=== PATIENT | female | born 1985 | race Caucasian/White ===

== ENCOUNTER 2017-07-25 10:35 | Outpatient (CLI) | payer MEDICAID ==
--- NOTE | 2017-07-25 11:16 | Non Stress Test Report ---
Non Stress Test Datetime Report Generated by CPN: 07/25/2017 11:16 DEMOGRAPHIC EGA NST: 32.6 INDICATION Indication for Study: Diabetes Mellitus; Ordered by Provider MONITORING Monitor Explained: Monitor Explained; Test Explained; Patient Verbalized Understanding Time on Monitor: 07/25/2017 10:47 Time off Monitor: 07/25/2017 11:10 NST Duration: 23 NST INTERVENTIONS NST Interventions: PO Hydration; Reposition Patient Physician Notified NST: C Valenica CNM BABY A: [id number] BABY A Movement : Present Contraction Frequency : 0 FHR Baseline : 150 Accelerations : 15X15 Decelerations : None Variability : Moderate 6-25bpm NST Review: Meets Criteria for Reactive NST NST Review and Verified By : MANSI Burton Results: Reactive NST REPORT Report Trigger: Send Report
== END 2017-07-25 11:20 | disposition home or self-care (01) ==
LOC: LC 10:35
PROVIDERS: ATTEND Obstetrics & Gynecology
PROC: 4A1HXCZ Monitoring of Products of Conception, Cardiac Rate, External Approach (ICD-10-PCS; principal; 2017-07-25)
DX: O24.419 Gestational diabetes mellitus in pregnancy, unspecified control (principal); Z3A.32 32 weeks gestation of pregnancy
CPT/HCPCS: 59025

== ENCOUNTER 2017-07-28 10:51 | Outpatient (CLI) | payer MEDICAID ==
--- NOTE | 2017-07-28 12:29 | RADIOLOGY REPORT (SQ) ---
EXAM DESCRIPTION: U/S PROFILE W/O STRESS COMPLETED DATE/TIME: 07/28/2017 12:13 pm REASON FOR STUDY: non reactive nst for GDM COMPARISON: None. TECHNIQUE: Limited canseco-scale realtime and static images of the fetus to measure specified parameter s. LIMITATIONS: None. FINDINGS: HEART RATE: 126 beats per minute. BREATHING MOVEMENT: 2 points. MOVEMENT: 2 points. POSTURE AND TONE: 2 points. QUALITATIVE RED: 2 points. OTHER: No other significant finding. IMPRESSION: BIOPHYSICAL PROFILE: 10/18. Trimester of : Third - 28 weeks to delivery COMMENT: BREATHING MOVEMENTS: 2 POINTS: PRESENT 0 POINTS: ABSENT MOTION: 2 POINTS: PRESENT 0 POINTS: ABSENT TONE: 2 POINTS: PRESENT 0 POINTS: ABSENT AMNIOTIC FLUID VOLUME: 2 POINTS: LARGEST POCKET GREATER THAN 2 CM DEPTH. 0 POINTS: NO POCKET OF 2 CM. TECHNICAL DOCUMENTATION: JOB ID: [id number] [employer]- All Rights Reserved Reading location - IP/workstation name: [email or web address]
== END 2017-07-28 13:14 | disposition home or self-care (01) ==
LOC: LC 10:51
PROVIDERS: ATTEND Obstetrics & Gynecology Gynecology
PROC: 4A1HXCZ Monitoring of Products of Conception, Cardiac Rate, External Approach (ICD-10-PCS; principal; 2017-07-28)
DX: O24.415 Gestational diabetes mellitus in pregnancy, controlled by oral hypoglycemic drugs (principal); Z3A.35 35 weeks gestation of pregnancy
CPT/HCPCS: 76819

== ENCOUNTER 2017-08-18 10:31 | Outpatient (CLI) | payer MEDICAID ==
--- NOTE | 2017-08-18 10:37 | Non Stress Test Report ---
Non Stress Test Datetime Report Generated by CPN: 08/18/2017 10:37 DEMOGRAPHIC EGA NST: 33.2 INDICATION Indication for Study: Diabetes Mellitus; Ordered by Provider VITAL SIGNS Temperature - NST: 98.1 Pulse - NST: 89 NBPSYS NST: 118 NBPDIA NST: 72 MONITORING Monitor Explained: Monitor Explained; Test Explained; Patient Verbalized Understanding Time on Monitor: 07/28/2017 12:45 Time off Monitor: 07/28/2017 13:05 NST Duration: 20 NST INTERVENTIONS NST Interventions: PO Hydration; For Biophysical Profile NST Interventions Other: BPP WNL Physician Notified NST: A. Rosen, CNM BABY A: [id number] BABY A Movement : Present Contraction Frequency : 0 FHR Baseline : 135 Accelerations : 10X10 Decelerations : None Variability : Moderate 6-25bpm NST Review: Questionable if Meets Criteria for Reactive NST NST Review and Verified By : Ranjith Baker RN NST Results: Questionable NST REPORT Report Trigger: Send Report
--- NOTE | 2017-08-23 07:24 | Non Stress Test Report ---
Non Stress Test Datetime Report Generated by CPN: 08/23/2017 07:23 DEMOGRAPHIC EGA NST: 36.2 INDICATION Indication for Study: Ordered by Provider Indication for Study (NST) Other: repeat from office for choley MONITORING Monitor Explained: Monitor Explained; Test Explained; Patient Verbalized Understanding Time on Monitor: 08/18/2017 10:40 Time off Monitor: 08/18/2017 11:50 NST Duration: 70 NST INTERVENTIONS NST Interventions: PO Hydration; Reposition Patient Physician Notified NST: Dr Paris BABY A: [id number] BABY A Movement : Present Contraction Frequency : 0 FHR Baseline : 130 Accelerations : 15X15 Decelerations : None Variability : Moderate 6-25bpm NST Review: Meets Criteria for Reactive NST NST Review and Verified By : Antony Handy RNC NST Results: Reactive NST REPORT Report Trigger: Send Report
== END 2017-08-18 11:50 | disposition home or self-care (01) ==
LOC: LC 10:31
PROVIDERS: ATTEND Student in an Organized Health Care Education/Training Program
PROC: 4A1HXCZ Monitoring of Products of Conception, Cardiac Rate, External Approach (ICD-10-PCS; principal; 2017-08-18)
DX: O24.419 Gestational diabetes mellitus in pregnancy, unspecified control (principal); Z3A.36 36 weeks gestation of pregnancy
CPT/HCPCS: 59025

== ENCOUNTER 2017-08-23 09:22 | Inpatient (IN) | payer MEDICAID ==
[2017-08-23] MEDS ORDERED: OXYTOCIN/NORMAL SALINE 20 UNIT/1,000 ML RTUINJ IV PRN ×3 (09:34→21:23)
[2017-08-23] MEDS ORDERED: RINGERS SOLUTION,LACTATED 300 ML IV ONE (09:34)
[2017-08-23] MEDS ORDERED: RINGERS SOLUTION,LACTATED 1,000 ML IV PRN (09:34)
[2017-08-23] MEDS ORDERED: PENICILLIN G POTASSIUM 5,000,000 UNIT in DEXTROSE 5%-WATER 100 ML IV ONE (09:36)
[2017-08-23] MEDS ORDERED: LIDOCAINE 1% INJ-PF (10 MG/ML) 30 ML SDV ONE (09:37)
[2017-08-23] MEDS ORDERED: MISOPROSTOL 0.2 MG TABLET ONE (09:37)
[2017-08-23] MEDS ORDERED: PENICILLIN G-K 5 MILLION UNIT VIAL ONE ×3 (09:37→18:46)
[2017-08-23] MEDS ORDERED: OXYTOCIN/NORMAL SALINE 20 UNIT/1,000 ML RTUINJ ONE (09:37)
[2017-08-23 10:42] LABS: ABSOLUTE EOSINOPHILS # (AUTO) 0.3 10^3/uL (0.0-0.6); ABSOLUTE LYMPHOCYTES (AUTO) 2.2 10^3/uL (0.5-4.7); ABSOLUTE MONOCYTES (AUTO) 0.6 10^3/uL (0.1-1.4); ABSOLUTE NEUT (AUTO) 6.3 10^3/uL (1.7-8.2); BASOPHILS % (AUTO) 0.4 % (0-2); HEMATOCRIT 33.7 % (36.0-47.0); HEMOGLOBIN 11.3 g/dL (12.0-15.5); LYMPHOCYTES % (AUTO) 23.3 % (13-45); MEAN CORPUSCULAR HEMOGLOBIN 30.5 pg (27.0-33.4); MEAN CORPUSCULAR HGB CONC 33.6 g/dL (32.0-36.0); MEAN CORPUSCULAR VOLUME 91 fl (80-97); MONOCYTES % (AUTO) 6.5 % (3-13); PLATELET COUNT 223 10^3/uL (150-450); RED BLOOD COUNT 3.71 10^6/uL (3.72-5.28); SEGMENTED NEUTROPHILS % (AUTO) 66.8 % (42-78); TOTAL CELLS COUNTED % (AUTO) 100 %; WHITE BLOOD COUNT 9.4 10^3/uL (4.0-10.5)
[2017-08-23 10:44] LABS: INTERNATIONAL RATION (INR) 0.85
[2017-08-23 10:45] LABS: PARTIAL THROMBOPLASTIN TIME 27.4 SEC (23.5-35.8)
[2017-08-23 10:45] LABS: URINE AMPHETAMINES SCREEN NEGATIVE; URINE BARBITURATES SCREEN NEGATIVE; URINE BENZODIAZEPINES SCREEN NEGATIVE; URINE COCAINE SCREEN NEGATIVE; URINE MARIJUANA (THC) SCREEN NEGATIVE; URINE METHADONE SCREEN NEGATIVE; URINE PHENCYCLIDINE SCREEN NEGATIVE
[2017-08-23 10:51] LABS: ALANINE AMINOTRANSFERASE 66 U/L (9-52); ALBUMIN 3.5 g/dL (3.5-5.0); ALKALINE PHOSPHATASE 135 U/L (38-126); ANION GAP 11 (5-19); ASPARTATE AMINO TRANSFERASE 45 U/L (14-36); BILIRUBIN,DIRECT 0.2 mg/dL (0.0-0.4); BILIRUBIN,TOTAL 0.3 mg/dL (0.2-1.3); BLOOD UREA NITROGEN 11 mg/dL (7-20); CALCIUM 9.9 mg/dL (8.4-10.2); CARBON DIOXIDE 21 mmol/L (22-30); CHLORIDE 108 mmol/L (98-107); GLUCOSE 80 mg/dL (75-110); LDH 499 U/L (313-618); POTASSIUM 4.6 mmol/L (3.6-5.0); SODIUM 139.5 mmol/L (137-145); TOTAL PROTEIN 6.6 g/dL (6.3-8.2)
--- NOTE | 2017-08-23 11:21 | Admission Physical ---
Datetime Report Generated by CPN: 08/23/2017 11:21 CURRENT ADMISSION Chief Complaint: Scheduled Induction of Labor Indication for Induction: Eclampsia-Mild; Maternal Diabetes Indication for Induction- Other: Cholestasis of Admit Impression : Term, Intrauterine ; No Active Labor; Intact Membranes; Induction of Labor Admit Plan: Admit to Unit; Initiate Labor Induction Protocol ALLERGIES Medication Allergies: No Medication Allergies: No Known Allergies (08/23/2017) Latex: Latex Allergies Food Allergies: none Environmental Allergies: none OBSTETRICAL HISTORY EDC: 09/13/2017 00:00 : 4 Para: 3 Term: 3 : 0 SAB: 0 IAB: 0 Ectopic: 0 Livin Cesareans: 0 VBACs: 0 Multiple Births: 0 Gestational Diabetes: Yes Rh Sensitization: No Incompetent Cervix: No DANIEL: No Infertility: No ART Treatment: No Uterine Anomaly: No IUGR: No Hx Previous C/S: No Macrosomia: Yes Hx Loss/Stillborn: No PIH: Unknown Hx : No Placenta Previa/Abruption: No Depression/PP Depression: No PTL/PROM: No Post Hemorrhage: No Current Procedures: Ultrasound; NST Obstetrical History Comments: G1-GIRL, 7#2 G2-BOY, 8#6 G3-BOY, 9#1- MACROSOMIA, GDM G4- CURRENT- A2DM, CHOLESTASIS, GBS +, PRE-E SEE RECORDS Alcohol: No Marijuana : No Cocaine: No Other Illicit Drugs: No Cigarettes: Former Smoker. 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 Surgery: No Heart Disease: No Hosp/Surgery: Yes Autoimmune Disorder: No Anesthetic Complications: No Kidney Disease: No Abnormal Pap Smear: Yes Neuro/Epilepsy: No Psychiatric Disorders: No Other Medical Diseases: No Hepatitis/Liver Disease: No Significant Family History: No Varicosities/Phlebitis: No Trauma/Violence : No Thyroid Dysfunction: No Medical History Comments: Pre-E, childbirth, abnormal pap in INFECTIOUS HISTORY Gonorrhea: No Genital Herpes: No Chlamydia: Yes Tuberculosis: No Syphilis: No Hepatitis: No HIV/AIDS Exposure: No Rash or Viral Illness: No HPV: No Infectious History Comments: chlamydia PHYSICAL EXAM General: Normal HEENT: Normal Neurologic: Normal Thyroid: Deferred Heart: Normal Lungs: Normal Breast: Deferred Back: Normal Abdomen: Normal Genitourinary Exam: Normal Extremities: Normal DTRs: Normal Pelvic Type: Adequate Vital Signs: Reviewed VAGINAL EXAM Dilatation: 3 Effacement: 50 Station: -3 Contraction Comments: rare MEMBRANES Membranes: Intact FETUS A EGA: 37.0 Monitoring: External US FHR- Baseline: 145 Variability: Moderate 6-25bpm Accelerations: 15X15 Decelerations: None Estimated Weight (gm): 3197 Presentation: Vertex Admit Comment: 31yo at 37+0ega presents for IOL due to Mild PreE, Cholestasis of , A2GDM. She has only custody on one prior child. also c/b pruritis folliculitis of . Currently on Metformin QHS. EFW 7#1oz on 08/15. history of anxiety and depression - no meds - needs nurse discharge planner. GBS positive - PCN for GBS prophy. Admit to L_D for IOL with pitocin. Anticipate . PLANS FOR LABOR AND DELIVERY Labor and Delivery: None Pain Management: Epidural Feeding Preference: Formula Benefit of Breast Feed Discussed: Yes Circumcision: Yes INFORMED CONSENT Informed Consent Obtained: Vaginal Delivery; Induction of Labor; Risks, Benefits and Alternatives Discussed Signature: with User ID: [email or web address]
[2017-08-23] MEDS ORDERED: MAG HYDROX/AL HYDROX/SIMETH SUSP 30 ML UDCUP ONE (11:57)
[2017-08-23] MEDS ORDERED: HYDROXYZINE PAMOATE 50 MG CAPSULE ONE ×2 (11:57→19:45)
[2017-08-23] MEDS ORDERED: PENICILLIN G POTASSIUM 2,500,000 UNIT in DEXTROSE 5%-WATER 50 ML IV SCH (13:36)
[2017-08-23] MEDS ORDERED: EPHEDRINE SULFATE INJ 50 MG/1 ML AMPULE ONE (16:03)
[2017-08-23] MEDS ORDERED: BUPIVACAINE HCL 0.25 % INJ/PF (2.5 MG/1 ML) 30 ML VIAL ONE (16:03)
[2017-08-23] MEDS ORDERED: FENTANYL/BUPIVACAINE/NS/PF 300 MCG/150 ML RTUINJ EPI ONE (16:03)
[2017-08-23] MEDS ORDERED: LIDOCAINE 1.5%/EPINEPHRINE INJ-PF 30 ML SDV ONE (16:09)
--- NOTE | 2017-08-23 17:02 | L&D Progress Notes ---
PROGRESS NOTES Datetime Report Generated by CPN: 08/23/2017 17:02 PROGRESS NOTE Informed Consent Obtained: Vaginal Delivery; Induction of Labor; Risks, Benefits and Alternatives Discussed Comment: epidural completed, feeling better, VE= 5-6/80/vtx/-2, ballotible, wait to ROM, will recheck later and ROM, Cat 1 strip VAGINAL EXAM Dilatation: 3 Effacement: 50 Station: -3 Contractions: rare MEMBRANES Membranes: Intact FETUS A Estimated Weight (gm): 3197 Presentation: Vertex SIGNATURE SIGNATURE: [id number] SIGNATURE: [id number] SIGNATURE: [id number] SIGNATURE: [id number] SIGNATURE: [id number] Assignment: Keren Paris MD Signature: with User ID: [email or web address] : with User ID: [email or web address]
--- NOTE | 2017-08-23 18:47 | L&D Progress Notes ---
PROGRESS NOTES Datetime Report Generated by CPN: 08/23/2017 18:46 PROGRESS NOTE Comment: comfortable, VE 6-7/100/vtx/0, AROM by FSE, clear fluid, UC's q 2-4, mod palpation, anticipate FETUS C SIGNATURE: [id number];14,[id number];10,[id number] Assignment: Keren Paris MD Signature: with User ID: [email or web address] : with User ID: [email or web address]
[2017-08-23] MEDS ORDERED: HYDROXYZINE PAMOATE 50 MG CAPSULE PO ONE (20:30)
--- NOTE | 2017-08-23 21:15 | Warning Signs in Babies ---
VOD Warning Signs Datetime Report Generated by [facility]: 08/23/2017 21:14 VOD#608 -Warning Signs in Babies: Viewed with Parent(s)/Family (08/23/2017 21:14:Khushboo Laughlin RN)
[2017-08-23] MEDS ORDERED: MEASLES,MUMPS&RUBELLA VACC/PF 0.5 ML VIAL SUBCUT PRN (21:23)
[2017-08-23] MEDS ORDERED: PSEUDOEPHEDRINE HCL 30 MG TABLET PO PRN (21:23)
[2017-08-23] MEDS ORDERED: MAGNESIUM HYDROXIDE SUSP 30 ML UDCUP PO PRN (21:23)
[2017-08-23] MEDS ORDERED: NA PHOS,M-B/NA PHOS,DI-BA (ADULT) 133 ML ENEMA PR PRN (21:23)
[2017-08-23] MEDS ORDERED: PROMETHAZINE HCL 25 MG TABLET PO PRN (21:23)
[2017-08-23] MEDS ORDERED: ZOLPIDEM TARTRATE 5 MG TABLET PO PRN (21:23)
[2017-08-23] MEDS ORDERED: ACETAMINOPHEN 325 MG TABLET PO PRN (21:23)
[2017-08-23] MEDS ORDERED: DIBUCAINE 1% OINTMENT 28 GM TP PRN (21:23)
[2017-08-23] MEDS ORDERED: BENZOCAINE/MENTHOL AEROSOL SPRAY 56 ML TOP PRN (21:23)
[2017-08-23] MEDS ORDERED: PROMETHAZINE HCL 25 MG SUPP.RECT PR PRN (21:23)
[2017-08-23] MEDS ORDERED: PROMETHAZINE HCL INJ 25 MG/1 ML VIAL IV PRN (21:23)
[2017-08-23] MEDS ORDERED: GLYCERIN/WITCH HAZEL LEAF 1 EACH MED..PAD TP PRN (21:23)
[2017-08-23] MEDS ORDERED: DIPH/PERTUSS(ACELL)/TETANUS VAC/PF 0.5 ML SYR (>=10YO) IM PRN (21:23)
--- NOTE | 2017-08-23 21:46 | Delivery Summary ---
Del Sum A-C Datetime Report Generated by CPN: 08/23/2017 21:46 DELIVERY PERSONNEL DELIVERY PERSONNEL: [id number] Delivery Doctor:: Keren Paris MD Anesthesiologist:: Junior Chowdhury MD Labor and Delivery Nurse:: Khushboo Laughlin RN Nursery Nurse:: Claudette Fierro RN Control Clerk Auditing/CERTIFIED OPTICIAN: Sarahi Reddy CNA Additional Personnel: : Margaret Moreno RN MATERNAL INFORMATION Delivery Anesthesia: Epidural Medications After Delivery: Pitocin Bolus-Please Comment Meds After Delivery Comment: pitocin bolusing per order Maternal Complications: None Provider Comments: VMI delivered in ANDREW presentation. No nuchal cord. Shoulders and body delivered without difficulty. Cord doubly clamped and cut and infant to maternal abdomen for NRP. Placenta delivered intact spontaneously. No perineal lacerations. Mother and baby stable upon provider leaving the room. LABOR SUMMARY EDC: 09/13/2017 00:00 No. Babies in Womb: 1 Attempted: No Labor Anesthesia: Epidural LABOR INFORMATION Reason for Induction: Pre-Eclampsia; Maternal Diabetes; Other Reason for Induction- Other: cholestasis Onset of Labor: 08/23/2017 11:05 Complete Dilatation: 08/23/2017 20:29 Oxytocin: Induction Group B Beta Strep: POSITIVE Antibiotics # of Doses: 2 Antibiotics Time of Last Dose: 1422 Name of Antibiotic Given: PCN Steroids Given: None Reason Steroids Not Administered: Not Applicable MEMBRANES Membranes Rupture Method: Artificial Rupture of Membranes: 08/23/2017 18:41 Length of Rupture (hr): 2.20 Amniotic Fluid Color: Clear Amniotic Fluid Amount: Large Amniotic Fluid Odor: Normal STAGES OF LABOR Stage 1 hr: 9 Stage 1 min: 24 Stage 2 hr: 0 Stage 2 min: 24 Stage 3 hr: 0 Stage 3 min: 2 Total Time in Labor hr: 9 Total Time in Labor min: 50 VAGINAL DELIVERY Episiotomy: None Laceration #1: None Laceration Extension #1: N/A Laceration Repair: Not Applicable Sponge Count Correct: Yes Sharps Count Correct: Yes BABY A INFORMATION Delivery Date/Time: 08/23/2017 20:53 Method of Delivery: Vaginal Born in Route : No : N/A Forceps: N/A Vacuum Extraction: N/A Shoulder Dystocia : No PRESENTATION/POSITION BABY A Presentation: Cephalic Cephalic Presentation: Vertex Vertex Position: Left Occipital Anterior PLACENTA INFORMATION BABY A Placenta Delivery Time : 08/23/2017 20:55 Placenta Method of Delivery: Spontaneous Placenta Status: Delivered SCORES BABY A Heart Rate 1 min: >100 bpm Resp Effort 1 min: Good Cry Reflex Irritability 1 min: Cough or Sneeze or Pulls Away Muscle Tone 1 min: Active Motion Color 1 min: Body [place], Extremities Blue SCORE 1 MIN: 9 Heart Rate 5 min: >100 bpm Resp Effort 5 min: Good Cry Reflex Irritability 5 min: Cough or Sneeze or Pulls Away Muscle Tone 5 min: Active Motion Color 5 min: Body [place], Extremities Blue SCORE 5 MIN: 9 INFANT INFORMATION BABY A Gestational Age at Delivery: 37.0 Gestational Status: Early Term- 37- 38.6 Weeks Infant Outcome : Liveborn Condition : Stable Sex: Male IDENTIFICATION BABY A Infant Verification Date/Time: 08/23/2017 21:00 ID Band Number: [id number] Mother's Name Verified: Yes RN Verifying : , RN Additional Verifying Personnel: CUONG Santoyo/US WEIGHT/LENGTH BABY A Infant Birthweight (gm): 3360 Weight (lb): 7 Infant Weight (oz): 7 Infant Length (in): 19.00 Length (cm): 48.26 CORD INFORMATION BABY A No. Cord Vessels: 3 Nuchal Cord : N/A Cord Blood Taken: Yes-For Storage (Mom's Blood type +) ASSESSMENT BABY A Complications: None Physical Findings at Delivery: Within Normal Limits Infant Respirations: Appears Normal BABY B INFORMATION : N/A SIGNATURES Signature: with User ID: [email or web address]
[2017-08-24] MEDS ORDERED: IBUPROFEN 800 MG TABLET ONE (03:51)
[2017-08-24] MEDS ORDERED: PROMETHAZINE HCL INJ 25 MG/1 ML VIAL ONE (05:25)
[2017-08-24] MEDS ORDERED: ACETAMINOPHEN WITH CODEINE #3 TABLET ONE (05:28)
[2017-08-24] MEDS: ACETAMINOPHEN WITH CODEINE #3 TABLET PO PRN ×3 (05:31→21:11)
[2017-08-24 07:38] LABS: HEMATOCRIT 30.2 % (36.0-47.0); HEMOGLOBIN 10.2 g/dL (12.0-15.5); MEAN CORPUSCULAR HEMOGLOBIN 30.8 pg (27.0-33.4); MEAN CORPUSCULAR HGB CONC 33.8 g/dL (32.0-36.0); MEAN CORPUSCULAR VOLUME 91 fl (80-97); PLATELET COUNT 187 10^3/uL (150-450); RED BLOOD COUNT 3.31 10^6/uL (3.72-5.28); RED CELL DISTRIBUTION WIDTH 14.3 % (11.5-14.0); WHITE BLOOD COUNT 11.2 10^3/uL (4.0-10.5)
[2017-08-24] MEDS: SENNOSIDES/DOCUSATE 8.6-50 MG 1 EACH TABLET PO SCH (09:19)
[2017-08-24] MEDS: PRENATAL VITAMIN W DHA CAPSULE PO SCH (09:20)
[2017-08-24] MEDS: FERROUS SULFATE 325 MG TABLET PO SCH ×2 (09:20→17:34)
[2017-08-24] MEDS: DOCUSATE SODIUM 100 MG CAPSULE PO SCH ×2 (09:20→17:35)
[2017-08-24] MEDS: FAMOTIDINE 20 MG TABLET PO SCH ×2 (09:20→21:10)
[2017-08-24] MEDS: IBUPROFEN 800 MG TABLET PO SCH ×3 (09:47→21:09)
--- NOTE | 2017-08-24 10:52 | PDOC PROGRESS REPORT ---
Subjective-OB Progress Note for:: 08/24/17 Subjective: s/p day #1 denies concerns, lochia is stable, pain well controlled, voiding without difficulty. Physical Exam (OB) Vital Signs: Intake & Output 08/23/17 08/24/17 08/25/17 06:59 06:59 06:59 Weight 80.3 kg - Lochia Lochia Amount: Scant < 10 ml Lochia Color: Rubra/Red - Abdomen Description: Tender, Soft Hernia Present: No Fundal Description: Firm, Midline Fundal Height: u/u - u/2 Objective-Diagnostic Laboratory: 08/24/17 07:06 08/23/17 09:59 08/23/17 08/23/17 08/24/17 09:59 09:59 07:06 WBC 11.2 H RBC 3.31 L Hgb 10.2 L Hct 30.2 L MCV 91 MCH 30.8 MCHC 33.8 RDW 14.3 H Plt Count 187 Sodium 139.5 Potassium 4.6 Chloride 108 H Carbon Dioxide 21 L Anion Gap 11 BUN 11 Creatinine 0.46 L Est GFR ( Amer) > 60 Est GFR (Non-Af Amer) > 60 Glucose 80 Uric Acid 4.0 Calcium 9.9 Total Bilirubin 0.3 AST 45 H ALT 66 H Alkaline Phosphatase 135 H Total Protein 6.6 Albumin 3.5 Blood Type A POSITIVE Antibody Screen NEGATIVE Assessment and Plan(PN) - Assessment and Plan (1) Carrier of group B Streptococcus Is this a current diagnosis for this admission?: Yes Plan: monitor (2) Cholestasis during Qualifiers: Trimester: third trimester Qualified Code(s): O26.613 - Liver and biliary tract disorders in , third trimester; K83.1 - Obstruction of bile duct ; K83.1 - Obstruction of bile duct Is this a current diagnosis for this admission?: Yes Plan: monitor (3) Gestational diabetes mellitus (GDM) controlled on oral hypoglycemic drug Qualifiers: Trimester: third trimester Qualified Code(s): O24.415 - Gestational diabetes mellitus in , controlled by oral hypoglycemic drugs Is this a current diagnosis for this admission?: Yes Plan: yearly monitor (4) Pre-eclampsia Qualifiers: Trimester: third trimester Qualified Code(s): O14.93 - Unspecified pre- eclampsia, third trimester Is this a current diagnosis for this admission?: Yes Plan: monitor - Time Spent with Patient Time with patient: Less than 15 minutes Critical Time spent with patient: Less than 15 minutes Medications reviewed and adjusted accordingly: Yes - Disposition Anticipated Discharge: Home Within: within 24 hours
[2017-08-24] MEDS: HYDROXYZINE PAMOATE 50 MG CAPSULE PO SCH ×3 (12:04→21:10)
[2017-08-24] MEDS: DIPHENHYDRAMINE HCL 25 MG CAPSULE PO PRN ×2 (14:28→20:00)
[2017-08-25] MEDS: IBUPROFEN 800 MG TABLET PO SCH (05:58)
[2017-08-25] MEDS: HYDROXYZINE PAMOATE 50 MG CAPSULE PO SCH (05:59)
[2017-08-25] MEDS: ACETAMINOPHEN WITH CODEINE #3 TABLET PO PRN (06:40)
[2017-08-25 07:49] VITALS: BP 128/77
--- NOTE | 2017-08-25 09:01 | PDOC PROGRESS REPORT ---
Subjective-OB Progress Note for:: 08/25/17 Subjective: Ready to go home, still has some itching, needs formula when she goes home, has no money to buy any and WIC is not opened on the weekends, bottle feeding, voiding, scant bleeding Physical Exam (OB) Vital Signs: Temp Pulse Resp BP Pulse Ox 97.6 F 54 L 16 128/77 H 98 08/25/17 07:33 08/25/17 07:33 08/25/17 07:33 08/25/17 07:33 08/25/17 07:33 Intake & Output 08/24/17 08/25/17 08/26/17 06:59 06:59 06:59 Weight 80.3 kg - PIH/Pre-Eclampsia DTR's: 2 + Clonus: Negative Headache: Absent Epigastric Pain: No Visual Changes: No - Lochia Lochia Amount: Small 10-25 ml Lochia Color: Rubra/Red - Abdomen Description: Soft, Round Hernia Present: No Fundal Description: Firm Fundal Height: u/u - u/2 Objective-Diagnostic Laboratory: 08/24/17 07:06 08/23/17 09:59 Assessment and Plan(PN) - Assessment and Plan (1) Carrier of group B Streptococcus Is this a current diagnosis for this admission?: Yes (2) Cholestasis during Qualifiers: Trimester: third trimester Qualified Code(s): O26.613 - Liver and biliary tract disorders in , third trimester; K83.1 - Obstruction of bile duct ; K83.1 - Obstruction of bile duct Is this a current diagnosis for this admission?: Yes (3) Pre-eclampsia Qualifiers: Trimester: third trimester Qualified Code(s): O14.93 - Unspecified pre- eclampsia, third trimester Is this a current diagnosis for this admission?: Yes (4) Gestational diabetes mellitus (GDM) controlled on oral hypoglycemic drug Qualifiers: Trimester: third trimester Qualified Code(s): O24.415 - Gestational diabetes mellitus in , controlled by oral hypoglycemic drugs Is this a current diagnosis for this admission?: Yes - Time Spent with Patient Medications reviewed and adjusted accordingly: Yes - Disposition Anticipated Discharge: Home Within: Other - home today
--- NOTE | 2017-08-25 09:09 | PDOC DISCHARGE SUMMARY ---
Final Diagnosis Discharge Date: 08/25/17 - Final Diagnosis (1) Carrier of group B Streptococcus Is this a current diagnosis for this admission?: Yes (2) Cholestasis during Is this a current diagnosis for this admission?: Yes (3) Pre-eclampsia Is this a current diagnosis for this admission?: Yes (4) Gestational diabetes mellitus (GDM) controlled on oral hypoglycemic drug Is this a current diagnosis for this admission?: Yes Discharge Data - Discharge Medication Home Medications: Pnv No.121/Iron/Folic Acid [ Multivitamin Tablet] 1 tab PO DAILY Gestational Age: 37 Reason(s) for Admission: Induction of Labor, Medical Complications, Group B Strep Positive Admission Note: Cholestasis Procedures: NST, Ultrasound Intrapartum Procedure(s): Spontaneous Vaginal Delivery - Lamoni Data Baby 1 Male at 1 minute: 9 at 5 minutes: 9 Weight: 3.374 kg Home with Mother: Yes Complications: No - Diagnosis Test Laboratory: Temp Pulse Resp BP Pulse Ox 97.6 F 54 L 16 128/77 H 98 08/25/17 07:33 08/25/17 07:33 08/25/17 07:33 08/25/17 07:33 08/25/17 07:33 08/23/17 08/23/17 08/24/17 09:30 09:59 07:06 RBC 3.71 L 3.31 L Hgb 11.3 L 10.2 L Hct 33.7 L 30.2 L Urine Opiates Screen NEGATIVE - Discharge information/Instructions Discharge Activity: Activity As Tolerated, No Lifting Over 10 Pounds, Pelvic Rest Discharge Diet: As Tolerated, Regular Disposition: HOME, SELF-CARE Follow up with: [facility] in: 2, Weeks
[2017-08-25] MEDS: FAMOTIDINE 20 MG TABLET PO SCH (09:18)
[2017-08-25] MEDS: PRENATAL VITAMIN W DHA CAPSULE PO SCH (09:19)
[2017-08-25] MEDS: SENNOSIDES/DOCUSATE 8.6-50 MG 1 EACH TABLET PO SCH (09:19)
[2017-08-25] MEDS: DOCUSATE SODIUM 100 MG CAPSULE PO SCH (09:19)
[2017-08-25] MEDS: FERROUS SULFATE 325 MG TABLET PO SCH (09:19)
[2017-08-25] MEDS: DIPHENHYDRAMINE HCL 25 MG CAPSULE PO PRN (09:29)
== END 2017-08-25 12:35 | disposition home or self-care (01) | DRG 775 ==
LOC: LR 09:22 → 2S 08-24 08:04
PROVIDERS: ADMIT Student in an Organized Health Care Education/Training Program; ATTEND Student in an Organized Health Care Education/Training Program
PROC: 10E0XZZ Delivery of Products of Conception, External Approach (ICD-10-PCS; principal; 2017-08-23)
PROC: 4A1HXCZ Monitoring of Products of Conception, Cardiac Rate, External Approach (ICD-10-PCS; 2017-08-23)
DX: O24.425 Gestational diabetes mellitus in childbirth, controlled by oral hypoglycemic drugs (principal); K83.1 Obstruction of bile duct; O26.62 Liver and biliary tract disorders in childbirth; O14.94 Unspecified pre-eclampsia, complicating childbirth; O99.824 Streptococcus B carrier state complicating childbirth; Z87.891 Personal history of nicotine dependence; Z86.19 Personal history of other infectious and parasitic diseases; Z3A.37 37 weeks gestation of pregnancy; Z37.0 Single live birth
CPT/HCPCS: 36415; 80053; 80307; 83615; 84550; 85025; 85027; 85362; 85610; 85730; 86592; 86850; 86900; 86901; J2540; J2550; J2590; J3010; J3490

== ENCOUNTER 2017-11-16 08:17 | Day surgery (SDC) | payer MEDICAID ==
[2017-11-10 13:12] LABS: HEMATOCRIT 35.4 % (36.0-47.0); MEAN CORPUSCULAR HGB CONC 33.8 g/dL (32.0-36.0); MEAN CORPUSCULAR VOLUME 92 fl (80-97); PLATELET COUNT 335 10^3/uL (150-450); RED BLOOD COUNT 3.86 10^6/uL (3.72-5.28); RED CELL DISTRIBUTION WIDTH 13.7 % (11.5-14.0)
[2017-11-10 13:33] LABS: APPEARANCE,URINE SLIGHTLY-CLOUDY; BILIRUBIN,URINE NEGATIVE (NEGATIVE); COLOR,URINE YELLOW; GLUCOSE, URINE NEGATIVE (NEGATIVE); KETONES,URINE NEGATIVE (NEGATIVE); LEUKOCYTE ESTERASE,URINE NEGATIVE (NEGATIVE); NITRITE,URINE NEGATIVE (NEGATIVE); PROTEIN,URINE NEGATIVE (NEGATIVE); URINE SPECIFIC GRAVITY 1.021
[~2017-11-16 08:17] MED LIST: LACTATED RINGERS 1000 ML IV PRN; LIDOCAINE 0.5% INJ-PF (5 MG/ML) 50 ML SDV SUBCUT PRN
[2017-11-16] MEDS ORDERED: MIDAZOLAM 2 MG/2 ML INJ ONE (10:24)
[2017-11-16] MEDS ORDERED: HYDROMORPHONE HCL INJ/PF 2 MG/ML AMPULE ONE (10:24)
[2017-11-16] MEDS ORDERED: ONDANSETRON HCL INJ/PF 4 MG/2 ML SDV ONE (10:24)
[2017-11-16] MEDS ORDERED: FENTANYL CITRATE INJ/PF 100 MCG/2 ML AMPUL ONE ×2 (10:24→11:27)
[2017-11-16] MEDS ORDERED: PROPOFOL INJ 200 MG/20 ML VIAL IV ONE (10:25)
[2017-11-16] MEDS ORDERED: MORPHINE SULFATE 10 MG/ML INJ IV PRN (10:50)
[2017-11-16] MEDS ORDERED: MEPERIDINE HCL/PF INJ 25 MG/1 ML DISP.SYRIN IV PRN (10:50)
[2017-11-16] MEDS ORDERED: FENTANYL CITRATE INJ/PF 100 MCG/2 ML AMPUL IV PRN ×3 (10:50)
[2017-11-16] MEDS ORDERED: DIPHENHYDRAMINE HCL 50 MG/ML VIAL IV PRN (10:50)
[2017-11-16] MEDS ORDERED: PROMETHAZINE HCL INJ 25 MG/1 ML VIAL IV PRN ×2 (10:50)
[2017-11-16] MEDS ORDERED: OXYCODONE-ACETAMINOPHEN 5-325 MG TABLET PO PRN ×4 (10:50→11:54)
[2017-11-16] MEDS ORDERED: KETOROLAC TROMETHAMINE INJ/PF 30 MG/1 ML SDV ONE (11:47)
[2017-11-16] MEDS ORDERED: ACETAMINOPHEN 1,000 MG/100 ML RTUPB IV ONE (11:47)
[2017-11-16] MEDS ORDERED: RINGERS SOLUTION,LACTATED 1,000 ML IV PRN (11:51)
[2017-11-16] MEDS ORDERED: MORPHINE SULFATE 10 MG/ML INJ IM PRN (11:52)
[2017-11-16] MEDS ORDERED: IBUPROFEN 800 MG TABLET PO PRN (11:53)
[2017-11-16 13:58] VITALS: BP 123/78
[2017-11-16] MEDS ORDERED: SUCCINYLCHOLINE CHLORIDE INJ 200 MG/10 ML VIAL ONE (15:08)
--- NOTE | 2017-11-16 17:55 | OPERATIVE REPORT E ---
Operative Report NAME: SUSY DOOLEY : 10/08/1983 AGE: 34Y DATE OF SURGERY: 11/16/2017 ROOM: PREOPERATIVE DIAGNOSIS: Undesired fertility. POSTOPERATIVE DIAGNOSIS: Undesired fertility. OPERATION: Laparoscopic tubal cauterization. SURGEON: BIB MEDELLIN M.D. ANESTHESIA: Dr. Cedillo with general. FINDINGS: A normal uterus, tubes and ovaries. COMPLICATIONS: None. ESTIMATED BLOOD LOSS: 5 mL. SPECIMENS REMOVED: None. PROCEDURE: The patient was taken to the operating room, prepared and draped in normal sterile fashion in a dorsal lithotomy position. Under sterile conditions, an in and out catheter was performed of approximately 10 mL of clear urine. A sterile speculum was then placed into the vagina. The cervix was grasped with a single-tooth tenaculum. A Hulka clamp was then placed through the cervix for uterine manipulation. The speculum was removed and attention was turned to the upper portion of the case after the gloves were changed. An umbilical skin incision was made to accommodate a 5 mm port. The Veress needle was introduced to the peritoneal cavity and placement was confirmed with free flow of sterile water through the needle and entering pressure of 4 mmHg. The abdomen was inflated with approximately 2 liters of CO2 gas. The Veress needle was removed and the 5 mm port was placed through this incision. The camera was introduced. The patient was placed in Trendelenburg and another 5 mm port was placed in the left lower quadrant under direct visualization. A blunt probe was introduced to sweep the bowel away. The blunt probe was removed and the Kleppingers were introduced. Beginning with the left fallopian tube, the left fallopian tube was grasped and was coagulated using the Kleppingers. Approximately 3.5 cm of the fallopian tube was completely desiccated. This was repeated on the right fallopian tube without difficulty. The abdomen was inspected and found to be within normal limits and the Kleppingers were removed and the left lower port was removed under direct visualization with good hemostasis noted. The camera was removed. The abdomen was deflated through the umbilical port. The umbilical port was removed and both sites were closed with 4-0 Vicryl. The patient tolerated the procedure well. Sponge, lap and needle counts were correct x2. The patient was taken to recovery in stable condition. DICTATING PHYSICIAN: BIB MEDELLIN M.D. [id number] PHY#: [id number] ID: [id number] JOB#: [id number] ACCT: [id number] cc:BIB MEDELLIN M.D. >
== END 2017-11-16 13:40 | disposition home or self-care (01) ==
LOC: OROUT 08:17 → EDBD 10:30 → OROUT 13:40
PROVIDERS: ATTEND Obstetrics & Gynecology
DX: Z30.2 Encounter for sterilization (principal); F17.210 Nicotine dependence, cigarettes, uncomplicated
CPT/HCPCS: 58670; 36415; 85027; 81025; 81001; J2250; J3010; J1885; J1170; J0330; J2405; J2704; J0131; 851

== ENCOUNTER 2018-04-13 10:14 | Emergency (ER) | payer MEDICAID ==
--- NOTE | 2018-04-13 11:10 | ER Document Report ---
ED Medical Screen (RME) - General Chief Complaint: Abdominal Pain Stated Complaint: ABDOMINAL PAIN Time Seen by Provider: 04/13/18 11:08 Primary Care Provider: HALI KIRBY MD [Primary Care Provider] - Follow up as needed Notes: Patient says that she has had pain in the upper sides of her abdomen going around into the back "kidney" area for the past 3 days. Has not had this previously. Nauseated and vomited once, yellow stuff, this morning. No diarrhea. Has felt hot but has not taken her temp. She does have a fever of 101.0 in triage here today. Denies any UTI symptoms. Has had her tubes tied. On no regular prescription medications. TRAVEL OUTSIDE OF THE [place] IN LAST 30 DAYS: No - Related Data Allergies/Adverse Reactions: No Known Allergies Allergy (Verified 04/13/18 10:15) Past Medical History - Social History Chew tobacco use (# tins/day): No Frequency of alcohol use: None Drug Abuse: None - Past Medical History Cardiac Medical History: Denies: Hx Coronary Artery Disease, Hx Heart Attack, Hx Hypertension Pulmonary Medical History: Reports: Hx Pneumonia - CHILD Denies: Hx Asthma, Hx Bronchitis, Hx COPD Neurological Medical History: Denies: Hx Cerebrovascular Accident, Hx Seizures Renal/ Medical History: Denies: Hx Peritoneal Dialysis GI Medical History: Reports: Hx Gastroesophageal Reflux Disease Musculoskeltal Medical History: Denies Hx Arthritis Psychiatric Medical History: Reports: Hx Depression Past Surgical History: Reports: Hx Oral Surgery, Hx Tubal Ligation - Immunizations Immunizations up to date: Yes Hx Diphtheria, Pertussis, Tetanus Vaccination: Yes History of Influenza Vaccine for 12/2016 - 05/2017 Season: Yes Physical Exam - Vital signs Vitals: Temp Pulse Resp BP Pulse Ox 101.0 F H 99 16 119/81 98 04/13/18 10:52 04/13/18 10:52 04/13/18 10:52 04/13/18 10:52 04/13/18 10:52 Course - Vital Signs Vital signs: Temp Pulse Resp BP Pulse Ox 101.0 F H 99 16 119/81 98 04/13/18 10:52 04/13/18 10:52 04/13/18 10:52 04/13/18 10:52 04/13/18 10:52 Doctor's Discharge - Discharge Referrals: HALI KIRBY MD [Primary Care Provider] - Follow up as needed
[2018-04-13 11:58] LABS: ABSOLUTE LYMPHOCYTES (AUTO) 0.9 10^3/uL (0.5-4.7); ABSOLUTE MONOCYTES (AUTO) 1.3 10^3/uL (0.1-1.4); BASOPHILS % (AUTO) 0.3 % (0-2); HEMATOCRIT 37.3 % (36.0-47.0); HEMOGLOBIN 12.6 g/dL (12.0-15.5); LYMPHOCYTES % (AUTO) 7.3 % (13-45); MEAN CORPUSCULAR HEMOGLOBIN 31.6 pg (27.0-33.4); MEAN CORPUSCULAR HGB CONC 33.9 g/dL (32.0-36.0); MEAN CORPUSCULAR VOLUME 93 fl (80-97); MONOCYTES % (AUTO) 10.3 % (3-13); PLATELET COUNT 297 10^3/uL (150-450); RED CELL DISTRIBUTION WIDTH 13.1 % (11.5-14.0); SEGMENTED NEUTROPHILS % (AUTO) 82.1 % (42-78); TOTAL CELLS COUNTED % (AUTO) 100 %; WHITE BLOOD COUNT 12.2 10^3/uL (4.0-10.5)
[2018-04-13 12:18] LABS: ALANINE AMINOTRANSFERASE 48 U/L (9-52); ALBUMIN 4.5 g/dL (3.5-5.0); ALKALINE PHOSPHATASE 116 U/L (38-126); ANION GAP 13 (5-19); ASPARTATE AMINO TRANSFERASE 58 U/L (14-36); BILIRUBIN,DIRECT 0.2 mg/dL (0.0-0.4); BILIRUBIN,TOTAL 0.5 mg/dL (0.2-1.3); BLOOD UREA NITROGEN 9 mg/dL (7-20); CARBON DIOXIDE 28 mmol/L (22-30); CHLORIDE 96 mmol/L (98-107); GLUCOSE 117 mg/dL (75-110); LIPASE 72.9 U/L (23-300); POTASSIUM 3.7 mmol/L (3.6-5.0); SODIUM 137.1 mmol/L (137-145); TOTAL PROTEIN 7.4 g/dL (6.3-8.2)
[2018-04-13 12:29] LABS: APPEARANCE,URINE CLOUDY; BILIRUBIN,URINE NEGATIVE (NEGATIVE); COLOR,URINE YELLOW; GLUCOSE, URINE NEGATIVE (NEGATIVE); KETONES,URINE 20 mg/dL (NEGATIVE); LEUKOCYTE ESTERASE,URINE SMALL (NEGATIVE); NITRITE,URINE NEGATIVE (NEGATIVE); PROTEIN,URINE 30 mg/dL (NEGATIVE); URINE SPECIFIC GRAVITY 1.011; UROBILINOGEN,URINE NEGATIVE mg/dL (<2.0)
[2018-04-13] MEDS ORDERED: IBUPROFEN 600 MG TABLET PO ONE (12:43)
[2018-04-13] MEDS ORDERED: CEFTRIAXONE RTU 1 GM/D5W 50 ML IV ONE (12:44)
--- NOTE | 2018-04-13 13:04 | ER Document Report ---
ED GI/ - General Chief Complaint: Abdominal Pain Stated Complaint: ABDOMINAL PAIN Time Seen by Provider: 04/13/18 11:08 Primary Care Provider: HALI KIRBY MD [ACTIVE STAFF] - Follow up as needed Information source: Patient Notes: 34-year-old female who presents today with the onset around 3 days ago of some bilateral lower quadrant pain, left greater than right, with some radiation to the kidneys. Vomiting x1 last night. No diarrhea. Low-grade fevers at home. No dysuria. No vaginal discharge. No history of kidney stones. No missed menstrual periods. History of tubal ligation. Patient denies any aggravating or relieving factors. She describes the pain as "cramping". She states the pain is intermittent. TRAVEL OUTSIDE OF THE [place] IN LAST 30 DAYS: No - HPI Patient complains to provider of: Other - See above Timing/Duration: Intermittent Quality of pain: Other - See above Severity at maximum: Mild Severity in ED: Mild Location: Other Sexual history: Active Associated symptoms: Other - See above Exacerbated by: Denies Relieved by: Denies Similar symptoms previously: Yes Recently seen / treated by doctor: No - Related Data Allergies/Adverse Reactions: No Known Allergies Allergy (Verified 04/13/18 10:15) Past Medical History - Social History Smoking Status: Current Every Day Smoker Chew tobacco use (# tins/day): No Frequency of alcohol use: None Drug Abuse: None Family History: DM, Hyperlipidemia, Hypertension Patient has suicidal ideation: No Patient has homicidal ideation: No - Past Medical History Cardiac Medical History: Denies: Hx Coronary Artery Disease, Hx Heart Attack, Hx Hypertension Pulmonary Medical History: Reports: Hx Pneumonia - CHILD Denies: Hx Asthma, Hx Bronchitis, Hx COPD Neurological Medical History: Denies: Hx Cerebrovascular Accident, Hx Seizures Renal/ Medical History: Denies: Hx Peritoneal Dialysis GI Medical History: Reports: Hx Gastroesophageal Reflux Disease Musculoskeletal Medical History: Denies Hx Arthritis Psychiatric Medical History: Reports: Hx Depression Past Surgical History: Reports: Hx Oral Surgery, Hx Tubal Ligation - Immunizations Immunizations up to date: Yes Hx Diphtheria, Pertussis, Tetanus Vaccination: Yes Review of Systems - Review of Systems Constitutional: Fever EENT: denies: Eye discharge, Nose congestion, Nose discharge Cardiovascular: denies: Chest pain, Palpitations Respiratory: denies: Short of breath Gastrointestinal: Vomiting Genitourinary: denies: Dysuria Musculoskeletal: denies: Leg swelling Skin: Other - no hives. denies: Rash Neurological/Psychological: Other - no slurred speech -: Yes All other systems reviewed and negative Physical Exam - Vital signs Vitals: Temp Pulse Resp BP Pulse Ox 101.0 F H 99 16 119/81 98 04/13/18 10:52 04/13/18 10:52 04/13/18 10:52 04/13/18 10:52 04/13/18 10:52 Notes: Reviewed vital signs and nursing note as charted by RN. CONSTITUTIONAL: Alert and oriented and responds appropriately to questions. Well-appearing; well-nourished HEAD: Normocephalic; atraumatic EYES: Sclerae non-icteric ENT: Normal nose; no rhinorrhea; moist mucous membranes; pharynx without lesions noted NECK: Supple without meningismus; non-tender; no cervical lymphadenopathy, no masses CARD: Regular rate and rhythm; no murmurs; symmetric distal pulses RESP: Normal chest excursion without splinting or tachypnea; breath sounds clear and equal bilaterally; no wheezes, no rhonchi, no rales ABD/GI: Normal bowel sounds; non-distended; soft, minimally tender to palpation of the left lower and mid abdomen. No rebound or guarding. No palpable masses or abdominal bruits BACK: The back appears normal and is non-tender to palpation; mild left-sided CVA tenderness with no swelling or erythema EXT: Normal ROM in all joints; non-tender to palpation; no edema SKIN: No acute lesions noted NEURO: CN 2-12 intact; 5/5 bilateral upper and lower extremity strength with s ensation intact to light touch PSYCH: The patient's mood and manner are appropriate. Grooming and personal hygiene are appropriate. Course - Re-evaluation Re-evalutation: Given the history and physical examination we will obtain basic labs, urinalysis, test, liver panel and lipase, provide fluids and antipyretics. Patient's lungs are clear to auscultation bilaterally. Patient's pain appears to be in the mid left abdomen with some left CVA tenderness. I will order renal colic CT scan to evaluate for the possibility of an infected stone. 04/13/18 13:03 Urine analysis as recorded. Urine culture and Rocephin has been ordered. No change in exam. 04/13/18 14:37 Patient's examination is improved. No tenderness on repeat examination. No vomiting here at this facility. CT scan of the abdomen and pelvis as recorded showing no obvious acute pathology and no kidney stones present. Urine culture has been sent. Pelvic examination showed no obvious external/internal lesions. No cervical motion tenderness. No adnexal masses or tenderness. Wet prep as recorded. GC chlamydia is pending. Patient is . Patient will be discharged home with strict return precautions, a course of antibiotics and Zofran, and follow-up with the primary care physician. - Vital Signs Vital signs: Temp Pulse Resp BP Pulse Ox 101.0 F H 99 15 119/81 100 04/13/18 10:52 04/13/18 10:52 04/13/18 13:00 04/13/18 10:52 04/13/18 13:00 - Laboratory Result Diagrams: 04/13/18 11:27 04/13/18 11:27 Laboratory results interpreted by me: 04/13/18 04/13/18 04/13/18 11:27 11:27 11:27 WBC 12.2 H Seg Neutrophils % 82.1 H Lymphocytes % 7.3 L Absolute Neutrophils 10.0 H Chloride 96 L Glucose 117 H AST 58 H Urine Protein 30 H Urine Ketones 20 H Urine Blood MODERATE H Ur Leukocyte Esterase SMALL H Discharge - Discharge Clinical Impression: Pyelonephritis Condition: Good Disposition: HOME, SELF-CARE Additional Instructions: Come back immediately for any return or worsening of pain, change in location or quality of pain, persistent fevers, any vomiting, any rash, any cough or shortness of breath, or any other acute problems. Please make sure that you follow-up with the primary care provider regarding reassessment and urine culture results as we have discussed. Prescriptions: Cephalexin Monohydrate [Keflex 500 mg Capsule] 500 mg PO Q6H 10 Days #40 capsule Ondansetron [Zofran Odt 4 mg Tablet] 1 tab PO Q6H #15 tab.anastacio Referrals: HALI KIRBY MD [ACTIVE STAFF] - Follow up as needed
--- NOTE | 2018-04-13 13:32 | RADIOLOGY REPORT (SQ) ---
EXAM DESCRIPTION: CT LTD RENAL STONE PROTOCOL ON COMPLETED DATE/TIME: 04/13/2018 1:20 pm REASON FOR STUDY: flank pain; with fever and uti COMPARISON: None. TECHNIQUE: CT scan of the abdomen and pelvis performed without intravenous or oral contrast. Images reviewed with lung, soft tissue, and bone windows. Reconstructed coronal and sagittal MPR images revi ewed. All images stored on PACS. All CT scanners at this facility use dose modulation, iterative reconstruction, and/or weight based d osing when appropriate to reduce radiation dose to as low as reasonably achievable (ALARA). [facility]: Dose Right [facility]: CareDose [facility]: Dose Right [facility]: Teradose 4D [facility]: Smart Segopotso RADIATION DOSE: CT Rad equipment meets quality standard of care and radiation dose reduction techniq ues were employed. CTDIvol: 9.9 mGy. DLP: 552 mGy-cm.mGy. LIMITATIONS: None. FINDINGS: LOWER CHEST: No significant findings. No nodules or infiltrates. NON-CONTRASTED LIVER, SPLEEN, ADRENALS: There is hepatomegaly. The liver measures over 22 cm in cran ial caudal dimensions. No focal lesions. The spleen and adrenals are unremarkable in appearance. PANCREAS: No masses. No peripancreatic inflammatory changes. GALLBLADDER: No identified stones by CT criteria. No inflammatory changes to suggest cholecystitis. RIGHT KIDNEY AND URETER: No suspicious masses. Assessment limited by lack of IV contrast. No signif icant calcifications. No hydronephrosis or hydroureter. LEFT KIDNEY AND URETER: No suspicious masses. Assessment limited by lack of IV contrast. No signifi cant calcifications. No hydronephrosis or hydroureter. AORTA AND RETROPERITONEUM: No aneurysm. No retroperitoneal masses or adenopathy. BOWEL AND PERITONEAL CAVITY: No obvious masses or inflammatory changes. No free fluid. APPENDIX: Normal. PELVIS, BLADDER, AND ABDOMINAL WALL:No abnormal masses. No free fluid. Bladder normal. BONES: No significant findings. OTHER: No other significant finding. IMPRESSION: NO SIGNIFICANT OR ACUTE PROCESS IN THE ABDOMEN OR PELVIS. COMMENT: Quality ID # [id number]: Final reports with documentation of one or more dose reduction techniques (e.g., Automated exposure control, adjustment of the mA and/or kV according to patient size, use of iterative reconstruction technique) TECHNICAL DOCUMENTATION: JOB ID: [id number] All Rights Reserved Reading location - IP/workstation name: [email or web address]
[2018-04-13 14:28] LABS: BACTERIA (WET MOUNT) 3+ BACTERIA SEEN; EPITHELIALS (WET MOUNT) 3+ EPITHELIALS SEEN; RBCS (WET MOUNT) NO RBCS SEEN; T.VAGINALIS (WET MOUNT) NO TRICHOMONAS SEEN; WBCS (WET MOUNT) 2+ WBCS SEEN; YEAST (WET MOUNT) NO YEAST SEEN
[2018-04-13 15:03] VITALS: BP 105/68
[2018-04-13 15:55] LABS: CHLAM PCR NOT DETECTED (NOT DETECT); GON PCR NOT DETECTED (NOT DETECT)
== END 2018-04-13 14:58 | disposition home or self-care (01) ==
LOC: EDBD 10:14 → ER 10:14
DX: N12 Tubulo-interstitial nephritis, not specified as acute or chronic (principal); R10.9 Unspecified abdominal pain; R10.31 Right lower quadrant pain; R10.32 Left lower quadrant pain; F17.200 Nicotine dependence, unspecified, uncomplicated
CPT/HCPCS: 36415; 87086; 87210; 83690; 84703; 85025; 87088; 80053; 81001; 87186; 87491; 87591; 76380; J3490; J0696